=== PATIENT | male | born 1990 | race African-American/Black ===

== ENCOUNTER 2017-02-18 22:48 | Emergency (ER) | payer OTHER ==
[~2017-02-18] VITALS: Ht 185.4 cm; Wt 66.6 kg
[2017-02-18 22:49] VITALS: BP 144/76
== END 2017-02-19 00:22 | disposition home or self-care (01) ==
LOC: ED 23:58
DX: S50.02XA Contusion of left elbow, initial encounter (principal); W01.0XXA Fall on same level from slipping, tripping and stumbling without subsequent striking against object, initial encounter; Y93.89 Activity, other specified; Y92.69 Other specified industrial and construction area as the place of occurrence of the external cause; Y99.8 Other external cause status
CPT/HCPCS: 99284